=== PATIENT | female | born 2000 | race Caucasian/White ===

== ENCOUNTER 2024-07-16 13:53 | Emergency (ER) | payer MEDICAID, SELFPAY ==
[2024-07-16 14:14] VITALS: BP 119/80; PULSE 98; RESP 16; TEMP 36.6; O2SAT 98; BMI 23.9
--- NOTE | 2024-07-16 14:15 | ED_ITS ---
HPI - Abdominal Pain General Chief Complaint: Abdominal Pain Stated Complaint: Abd pain/diarrhea Time Seen by Provider: 07/16/24 19:58 History of Present Illness ED Provider: Juana JAUREGUI narrative: The patient is a 24-year-old female who does not have any significant past medical history and has no abdominal surgical history. She says that she has had abdominal pains for about 3 days associated with frequent loose stools. She indicates that she has had symptoms for about 3 days. She says that she has had abdominal pain and loose stools. She estimates that she may have had his many as 7 loose stools in a day. She indicates that the pain is primarily in the upper abdomen. She says she has been eating very little over the last few days because when she eats she gets abdominal pain and increased loose stools. By mouth. No definite fever. Possibly some mild nausea but no vomiting. No urinary symptoms. No back pain. The patient denies any recent travel or any other unusual exposures. No camping. No drinking from unusual water sources. It is an antibiotics. Related Data Previous Rx's ?Medication ?Instructions ?Recorded famotidine 40 mg tablet 40 mg PO DAILY #30 tabs 07/16/24 ondansetron 4 mg disintegrating 4 mg PO Q6H PRN nausea and 07/16/24 tablet vomiting #10 tabs Allergies Allergy/AdvReac Type Severity Reaction Status Date / Time No Known Allergies Allergy Verified 07/16/24 14:19 Review of Systems Review of Systems Yes all other systems are reviewed and are negative PMFSH Social History Social History Smoked in Last 30 Days: No Use of substances other than those prescribed or required for medical reasons: No Advance Directives: No Advance Directives Information Provided: No Do you have a plan to hurt others: No Plan Patient : No Physical Exam ED Vital Signs: Vital Signs - 24 hr 07/16/24 14:14 07/16/24 19:46 07/16/24 22:00 Temperature 97.9 F 98.3 F 98.3 F Pulse Rate 98 78 84 Respiratory Rate 16 16 16 Blood Pressure 119/80 122/87 116/81 Pulse Oximetry 98 100 98 Oxygen Delivery Method Room Air Room Air Room Air 07/16/24 22:27 Temperature 98.3 F Pulse Rate 84 Respiratory Rate 16 Blood Pressure 116/81 Pulse Oximetry 98 Oxygen Delivery Method Room Air BMI result Body Mass Index 23.9 Const Other: The patient looks as though she is in no a nearly healthy 24-year-old. She does not appear obviously ill or in distress. HENMT Other: Face is symmetrical. Mucous membranes moist. Eyes General: appearance normal, both eyes and all related structures Neck Neck: Yes no lymphadenopathy Resp Effort & Inspection: normal respiratory effort Auscultation: clear to auscultation bilaterally Cardio Rate: regular rate Rhythm: regular rhythm Heart sounds: S1 normal heart sound present and S2 normal heart sound present GI Other: The abdomen is flat and soft. She has some mild epigastric tenderness. She has so has some mild left lower quadrant tenderness. There is no right lower quadrant tenderness and no significant right upper quadrant tenderness. General: Yes no CVA tenderness Back/Spine/Pelvis Back: no CVA tenderness Skin Other: Skin is dry and unremarkable. Neuro Other: The patient is awake and alert with normal mental status. Cranial nerves are grossly intact. She moves all extremities normally and seems grossly neurologically intact Extrem Other: no peripheral edema Course Course Course Narrative: This is an RME performed by Aimee Vallecillo CNP: Additional HPI, ROS, PE not included below will be deferred to primary provider. Patient is a 24-year-old female who presents emergency department for evaluation of epigastric pain with nausea vomiting and diarrhea, typically 6-7 episodes of vomiting and diarrhea daily, no blood, no black stools. Denies associated symptoms. Denies possibility for . Denies history of similar symptoms in the past Plan: Tenderness upon palpation over the epigastrium, soft, no rigidity or guarding. Plan: Serum labs, urinalysis, hCG Medical Decision Making Medical Decision Making [facility] Narrative: the patient is a 24-year-old female who presents for evaluation of abdominal pain that seems primarily to be epigastric pain and which has also been associated with diarrhea. She does not have any right lower quadrant tenderness on exam. Clinically my suspicion for an acute surgical process is low. Her Laguna score is 3. the patient was treated symptomatically with ketorolac, ondansetron, and for monitoring. She was given a L of IV fluid. She seemed to feel better. Vital signs remain normal. She continues to look quite well. She had no ongoing diarrhea in the emergency department. She will be discharged with a prescription for famotidine and ondansetron. She should return if worse. Lab Data 07/16/24 14:34 07/16/24 14:34 Labs: Lab Results 07/16/24 Range/Units 14:34 WBC 10.6 (4.8-10.8) X10*3/uL RBC 4.07 L (4.20-5.50) X10*6/uL Hgb 13.0 (12.0-16.0) g/dl Hct 37.7 (37.0-47.0) % MCV 92.6 (80.0-98.0) fL MCH 31.9 (27.0-33.0) pg MCHC 34.5 (31.0-35.0) g/dl RDW 11.9 (11.0-16.0) % Plt Count 195 (160-400) X10*3/uL MPV 10.4 (9.4-12.3) fL Immature Gran % (Auto) 0.2 (0.0-0.4) % Neut % (Auto) 74.8 H (45-73) % Lymph % (Auto) 13.0 L (20-40) % [place] % (Auto) 10.8 (2-11) % Eos % (Auto) 0.9 (0-4) % Baso % (Auto) 0.3 (0-2) % Lymph # (Auto) 1.4 (1.2-4.9) X10*3/uL [place] # (Auto) 1.2 (0.1-1.2) X10*3/uL Eos # (Auto) 0.1 (0.0-0.4) X10*3/uL Baso # (Auto) 0.0 (0.0-0.2) X10*3/uL Abs Immat Gran (auto) 0.02 (0.00-0.03) X10*3/uL Absolute Neuts (auto) 7.9 (2.0-8.3) x10*3/uL Absolute Nucleated RBC 0.000 (0.0-0.012) X10*3/uL Nucleated RBC % (auto) 0.0 (0.0-0.2) /100WBC Sodium 139 (135-145) mmol/L Potassium 3.5 (3.3-5.1) mmol/L Chloride 109 H (96-108) mmol/L Carbon Dioxide 23 (22-29) mmol/L Anion Gap 11 L (12-20) BUN 9 (9-16) mg/dL Creatinine 0.82 (0.5-1.4) mg/dL Estim Creat Clear Calc 87.5 Estimated GFR > 60 Random Glucose 79 (60-115) mg/dL Calcium 9.1 (8.4-10.2) mg/dL Magnesium 2.1 (1.6-2.6) mg/dL Total Bilirubin 0.3 (0.0-1.0) mg/dL AST 16 (5-31) U/L ALT 15 (0-31) U/L Alkaline Phosphatase 68 (39-117) U/L C-Reactive Protein 0.96 H (< or = 0.50) mg/dL Total Protein 7.0 (6.5-8.0) g/dL Albumin 4.1 (3.5-5.0) g/dL Lipase 31 (8-78) U/L Urine Color Yellow Urine Appearance Clear Urine pH 5.5 (5.0-9.0) Ur Specific [place] >= 1.030 H (1.005-1.025) Urine Protein Negative (Neg-Trace) mg/dL Urine Glucose (UA) Negative (Negative) mg/dL Urine Ketones Trace (Negative) mg/dL Urine Blood Negative (Negative) Urine Nitrite Negative (Negative) Ur Leukocyte Esterase Negative (Negative) Urine Test NEGATIVE (NEGATIVE) Influenza Type A (PCR) NEGATIVE (Negative) Influenza Type B (PCR) NEGATIVE (Negative) RSV RNA Qual (PCR) NEGATIVE (Negative) SARS-CoV-2 RNA (RT-PCR) NEGATIVE (Negative) Medications Administered Discontinued Medications Generic Name Dose Route Start Last Admin Trade Name Freq PRN Reason Stop Dose Admin Famotidine 20 mg 07/16/24 20:14 07/16/24 20:24 Famotidine/Pf 20 Mg/2 Ml Vial IVPUSH 07/16/24 20:15 20 mg ONCE ONE Administration Sodium Chloride 1,000 mls @ 999 mls/hr 07/16/24 20:15 07/16/24 21:30 Ns IV 07/16/24 21:15 Infused .Q1H1M DARWIN Infusion Ketorolac Tromethamine 10 mg 07/16/24 20:13 07/16/24 20:24 Ketorolac Tromethamine 15 Mg/Ml Vial IVPUSH 07/16/24 20:14 10 mg ONCE ONE Administration Ondansetron HCl 4 mg 07/16/24 20:13 07/16/24 20:24 Ondansetron Hcl 4 Mg/2 Ml Vial IVPUSH 07/16/24 20:14 4 mg ONCE ONE Administration Discharge Plan Discharge Clinical Impression: Diarrhea, Epigastric abdominal pain Patient Disposition: Home, Self-Care Additional Instructions: I think you probably have a viral illness causing your diarrhea that will run its course over the next few days. The pain in your upper stomach may be related to a stomach acid problem. I have sent a prescription for medication called famotidine which helps reduce stomach acid production. Please take this medication daily for the next several days if not longer. I have also sent a prescription for medication called ondansetron that you may use on an as-needed basis for nausea. Drink lot of fluids. Follow up with your regular doctor. Return to the emergency room if you feel significantly worse. Prescriptions: New ondansetron 4 mg tablet,disintegrating 4 mg PO Q6H PRN (Reason: nausea and vomiting) Qty: 10 0RF famotidine 40 mg tablet 40 mg PO DAILY Qty: 30 0RF Stand Alone Forms: Work/School Release Interventions: ED Discharge Assessment Last Done: 07/16/24 22:27 Discharge Date/Time: 07/16/24 22:27 Print Language: Welsh
[2024-07-16 14:41] LABS: MANUAL DIFF FLAG NO
[2024-07-16 14:42] LABS: Basophils Percent Auto 0.3 % (0-2); Eosinophils Absolute Auto 0.1 X10*3/uL (0.0-0.4); Eosinophils Percent Auto 0.9 % (0-4); Hematocrit 37.7 % (37.0-47.0); Imm Gran Abs Auto 0.02 X10*3/uL (0.00-0.03); Imm Gran Pct Auto 0.2 % (0.0-0.4); Lymphocytes Absolute Auto 1.4 X10*3/uL (1.2-4.9); Mean Corpuscular HGB Conc 34.5 g/dl (31.0-35.0); Mean Corpuscular Hemoglobin 31.9 pg (27.0-33.0); Mean Corpuscular Volume 92.6 fL (80.0-98.0); Mean Platelet Volume 10.4 fL (9.4-12.3); Monocytes Absolute Auto 1.2 X10*3/uL (0.1-1.2); Monocytes Percent Auto 10.8 % (2-11); Neutrophils Absolute Auto 7.9 x10*3/uL (2.0-8.3); Neutrophils Percent Auto 74.8 % (45-73); Platelet Count 195 X10*3/uL (160-400); Red Blood Count 4.07 X10*6/uL (4.20-5.50); Red Cell Distribution Width 11.9 % (11.0-16.0); White Blood Count 10.6 X10*3/uL (4.8-10.8)
[2024-07-16 14:53] LABS: UPreg QC Valid YES; Urine Pregnancy NEGATIVE (NEGATIVE)
[2024-07-16 14:57] LABS: Alanine Aminotransferase 15 U/L (0-31); Albumin Level 4.1 g/dL (3.5-5.0); Alkaline Phosphatase 68 U/L (39-117); Anion Gap 11 (12-20); Aspartate Amino Transferase 16 U/L (5-31); Bilirubin Total 0.3 mg/dL (0.0-1.0); Blood Urea Nitrogen 9 mg/dL (9-16); Calcium 9.1 mg/dL (8.4-10.2); Carbon Dioxide 23 mmol/L (22-29); Chloride 109 mmol/L (96-108); Creatinine Clr Calc Pharmacy 87.5; Estimated Glomerular Filt Rate > 60; Glucose Random 79 mg/dL (60-115); Lipase 31 U/L (8-78); Magnesium 2.1 mg/dL (1.6-2.6); Potassium 3.5 mmol/L (3.3-5.1); Sodium 139 mmol/L (135-145)
[2024-07-16 15:11] LABS: Appearance Urine Clear; Color Urine Yellow; Glucose Urine UA Negative (Negative); Leukocyte Esterase Urine Negative (Negative); Nitrite Urine Negative (Negative); PH 5.5 (5.0-9.0); Specific Gravity - Urine >= 1.030 (1.005-1.025); Urine Blood Negative (Negative); Urine Ketones Trace mg/dL (Negative); Urine Protein Negative (Neg-Trace)
[2024-07-16 15:19] LABS: Influenza A PCR NEGATIVE (Negative); Influenza B PCR NEGATIVE (Negative); Resp Syncy Virus RNA Qual PCR NEGATIVE (Negative); SARS COV2 PCR INHOUSE NEGATIVE (Negative)
[2024-07-16 19:46] VITALS: BP 122/87; PULSE 78; RESP 16; TEMP 36.8; O2SAT 100
--- NOTE | 2024-07-16 19:49 | PC.NURSE ---
this rn assumed care of pt, pt a&ox4, respirations even and unlabored. pt reporting onset of loose stool/ diarrhea x3 days, pt reports upper abdominal pain. abdomen tender to touch x4 quadrants but reports she is also on her period causing lower abdominal cramping. vss.
[2024-07-16 20:15] LABS: C Reactive Protein 0.96 mg/dL (< or = 0.50)
[2024-07-16] MEDS: Famotidine/PF 20 MG/2 ML VIAL IVPUSH (20:24)
[2024-07-16] MEDS: Ketorolac Tromethamine 15 MG/ML VIAL 10 MG IVPUSH (20:24)
[2024-07-16] MEDS: ondansetron HCL 4 MG/2 ML VIAL IVPUSH (20:24)
[2024-07-16] MEDS: 0.9 % Sodium Chloride 1,000 ML 999 ML IV (20:24)
--- NOTE | 2024-07-16 20:29 | PC.NURSE ---
20G placed in left ac, pt medicated per mar at this time.
--- NOTE | 2024-07-16 20:29 | PC.NURSE ---
hat placed in pt bathroom, pt instructed to have BM in hat and ring aviles when completed for collection.
[2024-07-16 22:00] VITALS: BP 116/81; PULSE 84; RESP 16; TEMP 36.8; O2SAT 98
[2024-07-16 22:27] VITALS: BP 116/81; PULSE 84; RESP 16; TEMP 36.8; O2SAT 98
== END 2024-07-16 22:27 | disposition home or self-care (01) ==
PROVIDERS: Nurse Practitioner Family; Emergency Provider Emergency Medicine
DX: R19.7 Diarrhea, unspecified (principal); R10.13 Epigastric pain; Z03.818 Encounter for observation for suspected exposure to other biological agents ruled out; Z79.899 Other long term (current) drug therapy
CPT/HCPCS: 0241U; 80053; 81003; 81025; 83690; 83735; 85025; 86140; 96361; 96374; 96375; 99284; 99285; J1885; J2405

== ENCOUNTER 2024-12-17 09:36 | Outpatient (REF) | payer MEDICAID, SELFPAY ==
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
--- OUTSIDE RECORDS SUMMARY | 2024-12-17 10:33 | XMS_ITS | Encounter Summary ---
Author Organization [employer] Address [address] [facility] [address] [place] [address] Care Team Providers Care Feather Separator Name Role Phone Unavailable Primary Care Provider Unavailabl e Reason for Visit * Reason Comments Pre-visit Planning SDOH screening negat magda and tobacco screening negative Encounter Details Date Type Department Care Team ([facility] Contact Info) Description 12/09/2024 Patient Outreach [facility] [address] [place] [address] Pat Jacobs MD [address] [place] [address] Pre-visit Planning (SDOH screening negative and tobacco screening negative) Social History Tobacco Use Types Packs/Day Years Used Date Smoking Tobacco: Never Assessed Housing Stability Answer Date Recorded What is [...] AM EDT documented as of this encounter Progress Notes * Beverly Nelson - 12/09/2024 2:08 PM EST CC Beverly placed successful outbound call to patient for pre-visit planning. Patient name and confirmed. Patient confirms appt date and time, and has transportation. Biggest concern for appointment at this time is wants a referral to a specialist Patient advised to bring to appointment a photo id and insurance card. Appropriate screenings completed in anticipation of appointment. documented in this encounter Plan of Treatment Upcoming Encounters Date Type Department Care Team (Late st Contact Info) Description 03/16/2025 3:00 PM EDT Procedure Visit [facility] [address] [place] [address] Pat Jacobs MD [address] [place] [address] documented as of this encounter Visit Diagnoses Not on filedocumented in this encounter
--- OUTSIDE RECORDS SUMMARY | 2024-12-17 10:33 | XMS_ITS | Encounter Summary ---
Author Organization [employer] Address [address] [facility] [address] [place] [address] Care Team Providers Care Cold Rolling Coordinator Name Role Phone Pat Jacobs MD Primary Care Provider [phone] Encounter Details Date Type Department Care Team (Latest Contact Info) Description 12/17/2024 Travel Social History Tobacco Use Types Packs/Day Years Used Date Smoking Tobacco: Never Smokeless Tobacco: Never Alcohol Use Standard Drinks/Week Comments Yes 0 [...] AM EDT documented as of this encounter Plan of Treatment Upcoming Encounters Date Type Department Care Team (Late st Contact Info) Description 03/16/2025 3:00 PM EDT Procedure Visit [facility] [address] [place] [address] Pat Jacobs MD [address] [place] [address] documented as of this encounter Visit Diagnoses Not on filedocumented in this encounter Care Teams Cold Rolling Coordinator Relationship Specialty Start Date End Date Pat Jacobs MD [address] [place], [place] [id number] PCP - General Family Medicine 12/17/24 documented as of this encounter
[2024-12-17 12:05] LABS: Alanine Aminotransferase 16 U/L (0-31); Albumin Level 4.2 g/dL (3.5-5.0); Alkaline Phosphatase 56 U/L (39-117); Anion Gap 9 (12-20); Aspartate Amino Transferase 18 U/L (5-31); Bilirubin Total 0.4 mg/dL (0.0-1.0); Blood Urea Nitrogen 13 mg/dL (9-16); Carbon Dioxide 25 mmol/L (22-29); Chloride 107 mmol/L (96-108); Cholesterol 110 mg/dL (<200); Estimated Glomerular Filt Rate > 60; Glucose Random 79 mg/dL (60-115); HDL Cholesterol 49 mg/dL (>40); LDL Cholesterol Calculated 55 mg/dL (<100); Potassium 3.9 mmol/L (3.3-5.1); Sodium 137 mmol/L (135-145); Total Protein 7.5 g/dL (6.5-8.0); Triglycerides 34 mg/dL (<150)
[2024-12-17 12:10] LABS: TSH reflex Free T4 0.88 uIU/mL (0.32-4.0)
== END 2024-12-17 09:37 | disposition home or self-care (01) ==
LOC: HO.HHCL 09:36
PROVIDERS: Visit Provider General Practice
DX: Z13.220 Encounter for screening for lipoid disorders (principal); E05.90 Thyrotoxicosis, unspecified without thyrotoxic crisis or storm
CPT/HCPCS: 36415; 80053; 80061; 84443

== ENCOUNTER 2025-03-16 18:12 | Outpatient (REF) | payer OTHER, SELFPAY ==
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
[2025-03-18 17:58] LABS: C. trachomatis RNA TMA NOT DETECTED (NOT DETECTED); N. gonorrhoeae RNA TMA NOT DETECTED (NOT DETECTED)
[2025-03-18 18:54] LABS: Trichomonas (NAAT) NOT DETECTED (NOT DETECTED)
[2025-03-21 13:05] LABS: HPV Genotype 16 Negative (Negative); HPV Genotype 18 Negative (Negative); HPV High Risk Negative (Negative)
== END 2025-03-16 18:13 | disposition home or self-care (01) ==
LOC: HO.HHCLNP 18:12
PROVIDERS: Visit Provider General Practice
DX: Z12.4 Encounter for screening for malignant neoplasm of cervix (principal); Z11.51 Encounter for screening for human papillomavirus (HPV)
CPT/HCPCS: 87491; 87591; 87626; 87661; 88175

== ENCOUNTER 2025-04-12 17:22 | Outpatient (RCR) | payer OTHER, SELFPAY | END 2025-07-19 14:51 | disposition home or self-care (01) | LOC: HO.PT 17:22 | PROVIDERS: PCP General Practice; Visit Provider General Practice | DX: S13.4XXD Sprain of ligaments of cervical spine, subsequent encounter (principal) | CPT/HCPCS: 97110; 97140; 97161; 97530 ==

== ENCOUNTER 2025-08-10 15:41 | Outpatient (REF) | payer OTHER, SELFPAY ==
--- NOTE | ~2025-08-10 | XR_ITS ---
EXAMINATION: XR CHEST CLINICAL INFORMATION: 3 month h/o cough, + hemoptysis past week COMPARISON: None available. TECHNIQUE: PA and lateral views FINDINGS: Mild prominence of the interstitial markings. No consolidation, pleural effusion or pneumothorax. Cardiomediastinal silhouette size is normal. S-shaped curvature of the thoracolumbar spine. XR/XR chest 2V IMPRESSION: Probable acute small airway inflammatory process in the correct clinical settings. Scoliosis, mild, thoracolumbar spine. Electronically signed by: Sanford Kenny MD 08/10/2025 03:57 PM EST RP
--- OUTSIDE RECORDS SUMMARY | 2025-08-10 15:00 | XMS_ITS | Encounter Summary ---
Author Organization [employer] Address [address] [facility] [address] [place] [address] Care Team Providers Care Sewing Room Supervisor Name Role Phone Pat Jacobs MD Primary Care Provider [phone] Encounter Details Date Type Department Care Team (Late st Contact Info) Description 08/10/2025 3:00 PM EST Office Visit [facility] [address] [place] [address] Hemoptysis (Primary Dx); Chronic cough Social History Tobacco Use Types Packs/Day Years Used Date Smoking Tobacco: Never Passive Smoke Exposure: Never Smokeless Tobacco: Never Alcohol Use Standard [...] Q2 Not on file 12/09/2024 Comments No Sex and Gender Information Value Date Recorded Sex Assigned at Female 12/17/2024 9:27 AM EDT Legal Sex Female 1:44 PM EST Gender Identity Female 12/17/2024 9:27 AM EDT Sexual Orientation Don't know 12/17/2024 9: 27 AM EDT documented as of this encounter Last Filed Vital Signs Vital Sign Reading Time Taken Comments Blood Pressure 132/81 08/10/2025 3:09 PM EST Pulse 86 08/10/2025 3:09 PM EST Temperature 35.8 C (96.4 F) 08/10/2025 3:09 PM EST Respiratory Rate 16 08/10/2025 3:09 PM EST Oxygen Saturation 98% 08/10/2025 3:09 PM EST Inhaled Oxygen Concentration - - Weight 63 kg (139 lb) 08/10/2025 3:09 PM EST Height 160 cm (5' 3 ) 08/10/2025 3:09 PM EST Body Mass Index 24.62 08/10/2025 3:09 PM EST documented in this encounter Plan of Treatment Scheduled Orders Name Type Priority Associated Diagnoses Orde r Schedule POCT Rapid Influenza A FIERRO ID NOW Point of Care Testing Routine Chronic cough Ordered: 08/10/2025 POCT Rapid Influenza B FIERRO ID NOW Point of Care Testing Routine Chronic cough Ordered: 08/10/2025 POCT Rapid Covid-19 FIERRO ID NOW Point of Care Testing Routine Chronic cough Ordered: 08/10/2025 D-Dimer, Quantitative Lab Routine Hemoptysis Expected: 08/10/2025 (Approximate), Expires: 08/10/2026 T-SPOT .TB Lab Routine Hemoptysis Expected: 08/10/2025 (Approximate), Expires: 08/10/2026 documented as of this encounter Procedures Procedure Name Priority Date/Time Associated Diagnosis Comments CBC WITH AUTO DIFFERENTIAL Routine 08/10/2025 4:15 PM EST Hemoptysis XR CHEST 2 VIEWS Routine 08/10/2025 4:03 PM EST Hemoptysis Chronic cough documented in this encounter Results * CBC auto differential (08/10/2025 4:15 PM EST) White Blood Count 8.5 4.8 - 10.8 X10*3/uL [facility] Red Blood Count 4.30 4.20 - 5.50 X10*6/uL [facility] Hemoglobin 13.1 12.0 - 16.0 g/dl [facility] Hematocrit 39.7 37.0 - 47.0 % [facility] Mean Corpuscular Volume 92.3 80.0 - 98.0 fL [facility] Mean Corpuscular Hemoglobin 30.5 27.0 - 33.0 pg [facility] Mean Corpuscular HGB Conc 33.0 31.0 - 35.0 g/dl [facility] Red Cell Distribution Width 12.0 11.0 - 16.0 % [facility] Platelet Count 270 160 - 400 X10*3/uL [facility] Mean Platelet Volume 10.0 9.4 - 12.3 fL [facility] Neutrophils Percent Auto 57.3 45 - 73 % [facility] Imm Gran Pct Auto 0.2 0.0 - 0.4 % [facility] Lymphocytes Percent Auto 32.6 20 - 40 % [facility] Monocytes Percent Auto 7.2 2 - 11 % [facility] Eosinophils Percent Auto 2.1 0 - 4 % [facility] Basophils Percent Auto 0.6 0 - 2 % [facility] NRBC Pct Auto 0.0 0.0 - 0.2 /100WBC [facility] Neutrophils Absolute Auto 4.9 2.0 - 8.3 x10*3/uL [facility] Imm Gran Abs Auto 0.02 0.00 - 0.03 X10*3/uL [facility] Lymphocytes Absolute Auto 2.8 1.2 - 4.9 X10*3/uL [facility] Monocytes Absolute Auto 0.6 0.1 - 1.2 X10*3/uL [facility] Eosinophils Absolute Auto 0.2 0.0 - 0.4 X10*3/uL [facility] Basophils Absolute Auto 0.1 0.0 - 0.2 X10*3/uL [facility] NRBC Abs Auto 0.000 0.0 - 0.012 X10*3/uL [facility] Blood Venous blood specimen / Unknown 08/10/2025 4:15 PM EST 08/10/2025 4:15 PM EST us Ed Langston MD LAB BLOOD ORDERABLES Final Resul t Performing Organization Address City/State/[place] Co de Phone Number [facility] [address] [place] [phone] * XR Chest 2 Views (08/10/2025 4:03 PM EST) Anatomical Region Laterality Modality Chest Radiographic Saige ging 08/10/2025 4:03 PM EST Narrative 08/10/2025 3:59 PM EST [address] [address] XRay Report Signed Patient: Lady Aida Reece MR#: [id number] : 2000 Acct:[id number] Age/Sex: 25 / F ADM Date: 08/10/25 Loc: HO.HHCX Attending Dr: dE Langston MD Ordering Physician: ED LANGSTON MD Date of Service: 08/10/25 Procedure(s): XR chest 2V Accession Number(s): [id number] cc: ED LANGSTON MD Reason for Exam: 3 month h/o cough, + hemoptysis past week EXAMINATION: XR CHEST CLINICAL INFORMATION: 3 month h/o cough, + hemoptysis past week COMPARISON: None available. TECHNIQUE: PA and lateral views FINDINGS: Mild prominence of the interstitial markings. No consolidation, pleural effusion or pneumothorax. Cardiomediastinal silhouette size is normal. S-shaped curvature of the thoracolumbar spine. XR/XR chest 2V IMPRESSION: Probable acute small airway inflammatory process in the correct clinical settings. Scoliosis, mild, thoracolumbar spine. Electronically signed by: Sanford Kenny MD 08/10/2025 03:57 PM EST RP Dictated By: Sanford Jiménez MD Signed By: <Electronically signed by Sanford Sims MD in OV> 08/10/25 1557 DD/ 1603 TD/TT: 08/10/25 1554 Boiler Setter: Procedure Note Donotuseinterpreter, Image - 08/10/2025 [place] [address] XRay Report Signed Patient: Lady Shanell FMR#: [id number] : 2000Acct:[id number] Age/Sex: Date: 08/10/25 Loc: HO.HHCX Attending Dr: Ed Langston MD Ordering Physician: ED LANGSTON MD Date of Service: 08/10/25 Procedure(s): XR chest 2V Accession Number(s): [id number] cc: ED LANGSTON MD Reason for Exam: 3 month h/o cough, + hemoptysis past week EXAMINATION: XR CHEST CLINICAL INFORMATION: 3 month h/o cough, + hemoptysis past week COMPARISON: None available. TECHNIQUE: PA and lateral views FINDINGS: Mild prominence of the interstitial markings. No consolidation, pleural effusion or pneumothorax. Cardiomediastinal silhouette size is normal. S-shaped curvature of the thoracolumbar spine. XR/XR chest 2V IMPRESSION: Probable acute small airway inflammatory process in the correct clinical settings. Scoliosis, mild, thoracolumbar spine. Electronically signed by: Sanford Kenny MD 08/10/2025 03:57 PM EST RP Dictated By: Sanford Jiménez MD Signed By: <Electronically signed by Sanford Sims MDin OV> 08/10/25 1557 DD/ 1603 TD/TT: 08/10/25 1554 Boiler Setter: Ed Langston MD IMG XR PROCEDURES Final Result documented in this encounter Visit Diagnoses Diagnosis Hemoptysis- Primary Chronic cough Cough documented in this encounter Additional Health Concerns Assessment Noted Time PHQ-9 Depression Total Score: 0 03/16/20 3:34 PM EDT documented as of this encounter Care Teams Sewing Room Supervisor Relationship Specialty Start Date End Date Pat Jacobs MD [address] [place] [address] PCP - General Family Medicine 12/17/24 documented as of this encounter
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
--- OUTSIDE RECORDS SUMMARY | 2025-08-10 18:29 | XMS_ITS | Encounter Summary ---
Author Organization [employer] Address [address] [employer] [address] [place] [address] Care Team Providers Care Thermo Processor Name Role Phone Pat Jacobs MD Primary Care Provider [phone] Reason for Visit * Reason Onset Date Comments Nurse Triage 08/08/2025 Encounter Details Date Type Department Care Team ([facility] st Contact Info) Description 08/08/2025 Telephone [facility] [address] [place] [address] Pat Jacobs MD [address] [place] [address] Nurse Triage Social History Tobacco Use Types Packs/Day Years [...] AM EDT documented as of this encounter Miscellaneous Notes * Telephone Encounter - Candi Martinez RN - 08/10/2025 10:28 AM EST TC to patient with c programmer. No answer. Detailed message for patient to go to walk-in center to be evaluated. * Telephone Encounter - Candi Martinez RN - 08/08/2025 3:53 PM EST TC to patient to triage with yard supervisor cotton gin. Patient stated she is coughing up a small amount of bright red blood with phlegm in the mornings. She had been diagnosed with pertussis within the past few months, received antibiotics, and stated she is feeling better. Last Friday, she stated she began noticing the small amount of blood when coughing in the morning. Denies pain, fever, shortnes s of breath, difficulty breathing, denies N/V/D. Denies feeling like I did before when I had the pertussis. Routing to provider for review and next steps. * Telephone Encounter - Adolfo Lewis - 08/08/2025 2:44 PM EST Tc from pt stating every time she coughs in the morning blood comes up with flem Contact pt at [phone] (australian) documented in this encounter Plan of Treatment Not on file documented as of this encounter Visit Diagnoses Not on filedocumented in this encounter Additional Health Concerns Assessment Noted Time PHQ-9 Depression Total Score: 0 03/16/20 3:34 PM EDT documented as of this encounter Care Teams Thermo Processor Relationship Specialty Start Date End Date Pat Jacobs MD [address] [place] [phone] PCP - General Family Medicine 12/17/24 documented as of this encounter
--- OUTSIDE RECORDS SUMMARY | 2025-08-10 18:29 | XMS_ITS | Encounter Summary ---
Author Organization [employer] Address [address] [place] [address] Care Team Providers Care Therapist Occupational Name Role Phone Pat Jacobs MD Primary Care Provider [phone] Reason for Visit * Reason Onset Date Comments Referral 12/27/2024 Encounter Details Date Type Department Care Team ([facility] st Contact Info) Description 12/27/2024 Telephone [facility] [address] [place] [address] Pat Jacobs MD [address] [place] [address] Referral Social History Tobacco Use Types Packs/Day Years [...] more drinks on one occasion? 0 12/22/2024 Housing Stability Answer Date Recorded What is [...] encounter Miscellaneous Notes * Telephone Encounter - Whit Carver - 12/27/2024 3:59 PM EDT Tc from pt stating at [facility], appointments for Physical Therapy are scheduled for the end of January andshe would like to change location. documented in this encounter Plan of Treatment Not on file documented as of this encounter Visit Diagnoses Not on filedocumented in this encounter Care Teams Therapist Occupational Relationship Specialty Start Date End Date Pat Jacobs MD [address] [place] [address] PCP - General Family Medicine 12/17/24 documented as of this encounter
== END 2025-08-10 15:42 | disposition home or self-care (01) ==
LOC: HO.HHCX 15:41
PROVIDERS: Visit Provider Emergency Medicine
DX: R04.2 Hemoptysis (principal); R05.3 Chronic cough
CPT/HCPCS: 71046

== ENCOUNTER → 2025-08-10 15:41 | Outpatient (BNV) | payer OTHER, SELFPAY | PROVIDERS: Visit Provider Radiology Diagnostic Radiology | DX: R04.2 Hemoptysis (principal); M41.35 Thoracogenic scoliosis, thoracolumbar region | CPT/HCPCS: 71046 ==

== ENCOUNTER 2025-08-10 16:00 | Outpatient (REF) | payer OTHER, SELFPAY ==
[2025-08-10 16:16] LABS: MANUAL DIFF FLAG NO
[2025-08-10 16:32] LABS: Hematocrit 39.7 % (37.0-47.0); Hemoglobin 13.1 g/dl (12.0-16.0); Imm Gran Abs Auto 0.02 X10*3/uL (0.00-0.03); Imm Gran Pct Auto 0.2 % (0.0-0.4); Lymphocytes Absolute Auto 2.8 X10*3/uL (1.2-4.9); Mean Corpuscular HGB Conc 33.0 g/dl (31.0-35.0); Mean Corpuscular Hemoglobin 30.5 pg (27.0-33.0); Mean Corpuscular Volume 92.3 fL (80.0-98.0); NRBC Abs Auto 0.000 X10*3/uL (0.0-0.012); NRBC Pct Auto 0.0 /100WBC (0.0-0.2); Platelet Count 270 X10*3/uL (160-400); Red Blood Count 4.30 X10*6/uL (4.20-5.50); White Blood Count 8.5 X10*3/uL (4.8-10.8)
[2025-08-10 17:22] LABS: D Dimer High Sensitivity < 150 NG/ML
[2025-08-13 17:48] LABS: TS Negative Control Passed; TS Panel A 0; TS Panel B 0; TS Positive Control Passed; TSpotTB Negative (Negative)
== END 2025-08-10 16:01 | disposition home or self-care (01) ==
LOC: HO.LAB 16:00
PROVIDERS: PCP General Practice; Visit Provider Emergency Medicine
DX: Z11.1 Encounter for screening for respiratory tuberculosis (principal); R04.2 Hemoptysis
CPT/HCPCS: 36415; 85025; 85379; 86481

== ENCOUNTER 2025-09-20 11:04 | Outpatient (AMB) | payer OTHER, SELFPAY ==
[2025-09-20 11:06] VITALS: BP 104/66; PULSE 85; O2SAT 97; BMI 24.8
--- NOTE | 2025-09-20 11:06 | A.OFFVIS_ITS ---
Vital Signs 09/20/25 11:06 Height 5 ft 3 in Weight 140 lb BMI 24.8 BP 104/66 Blood Pressure Location Rt brachial Position Sitting Pulse 85 Pulse Source Pulse Oximeter Pulse Oximetry (%) 97 Oxygen Delivery Method Room Air Intake Visit Reasons: Cough/Hemoptysis Optical Engineering Manager Required: Yes Optical Engineering Manager Language: Gas Or Water Meter Installer Services: Optical Engineering Manager Present Optical Engineering Manager Name: Rita Montenegro QUOC Allergies No Known Allergies Allergy (Verified 09/20/25 11:09) HPI Comments Details: is a pleasant 25 year old female, never smoker, with no significant past medical history. She was referred by PCP for subacute cough with associated hemoptysis. She reports a cough that had persisted for 2-2.5 months, ultimately treated for possible pertussis with azithromycin. TB and ddimer negative. The cough has mostly resolved and is now intermittent and dry. She previously experienced hemoptysis, described as bloody streaks mixed with mucus, primarily in the mornings, but this has not occurred in the last two weeks. She previously had shortness of breath, which has since resolved. She currently denies any dyspnea, chest tightness, chest pain or wheezing. Past medical history is notable for a respiratory infection as a that required a one-month hospitalization. She has no personal or known family history of asthma and does not recall ever using an inhaler or nebulizer. She denies any history of autoimmune conditions, recurrent bronchitis, or sinus infections. A chest x-ray in August suggested probable acute small airway inflammatory process. Socially, she denies any history of smoking or exposure to secondhand smoke. She has a dog at home and suspects an undiagnosed allergy to dust or pollen that causes sneezing. She is not taking any medications and has no known allergies to seafood or kidney issues. Pulmonology History - Chronic cough for 3 months, now improving. - History of hemoptysis, which resolved two weeks ago. - Past shortness of breath, now resolved. - Denies personal or family history of asthma. - History of a respiratory infection as a requiring a one-month hospitalization. - Chest x-ray in August showed probable acute small airway inflammatory process [facility] Social History (Updated 09/20/25 @ 11:09 by Rita Murillo [facility]) Patient Tobacco Use Status: Never used Tobacco Review of Systems Narrative Const Denies chills, Denies excessive sweating, Denies fever(s), Denies headache(s) and Denies night sweats Eyes Denies dry eyes, Denies irritation and Denies itchy eyes ENT Reports Normal hearing present, Denies headache(s), Denies nasal congestion, Denies nasal discharge, Denies post nasal drip and Denies sore throat Card Denies chest pain, Denies chest pain at rest, Denies chest pain with activity, D enies claudication, Denies leg edema, Denies dyspnea, Denies dyspnea on exertion, Denies orthopnea and Denies paroxysmal nocturnal dyspnea Resp Denies change in phlegm color, Denies chest congestion, Reports cough, Denies hemoptysis, Denies excessive phlegm production, Denies pain on inspiration, Denies pain with cough, Denies dyspnea, Denies dyspnea on exertion, Denies st ridor and Denies wheezing Musc Denies myalgias Neuro Reports Normal hearing present and Denies headache(s) Endo Denies excessive sweating Iker/Lymph Denies lymphadenopathy Aller/Immun Denies itchy eyes, Denies seasonal rhinorrhea and Denies wheezing Physical Exam Exam Exam: Vital Signs: Last Vital Signs Pulse 85 09/20/25 11:06 BP 104/66 09/20/25 11:06 Pulse Ox 97 09/20/25 11:06 Oxygen Delivery Method Room Air 09/20/25 11:06 BMI result Body Mass Index 24.8 Const General: cooperative, healthy appearing, comfortable, no acute distress, well developed and alert Orientation/consciousness: patient oriented x3 Limitations: no limitations HEENT Head: Yes normal to inspection, Yes normocephalic and Yes atraumatic Ears: hearing grossly normal bilaterally and external ears normal Eyes General: appearance normal, both eyes and all related structures Eyelids: Yes eyelids normal Sclerae: sclerae normal EOM: EOMs intact bilaterally Neck Neck: Yes normal visual inspection and Yes no lymphadenopathy Lymphatic: no lymphadenopathy noted Chest Chest palpation & inspection: normal inspection of the chest Resp Effort & Inspection: normal respiratory effort, able to speak in complete sentences, no audible wheezes, no cough, no stridor, not tachypneic, no tripod positioning and no use of accessory muscles Auscultation: clear to auscultation bilaterally Cardio Jugular venous distension: no JVD Rate: regular rate Rhythm: regular rhythm Skin Other: warm, dry General skin exam: no rashes or lesions noted Neuro General: patient oriented x3 Cranial nerves: Yes Normal hearing present Cognition (Neuro): normal cognition Gait exam (Neuro): Normal gait present Extrem General: Yes normal to inspection, Yes capillary refill normal, Yes no clubbing, cyanosis or edema and Yes no pedal edema Psych Appearance: grossly normal and well kempt Speech and movement: Normal speech and movement present and Clear speech present Affect: normal affect Attitude: cooperative Thought process: Normal thought process present Thought content: Normal thought content present Insight: Good insight present (Psych) Judgement: Good judgement present (Psych) Results Reviewed Results Reviewed: [address] [address] XRay Report Signed Patient: Lady Aida Reece MR#: [id number] : 2000 Acct:[id number] Age/Sex: 25 / F ADM Date: 08/10/25 Loc: HO.HHCX Attending Dr: Ed Langston MD Ordering Physician: ED LANGSTON MD Date of Service: 08/10/25 Procedure(s): XR chest 2V Accession Number(s): [id number] cc: ED LANGSTON MD~ Reason for Exam: 3 month h/o cough, + hemoptysis past week EXAMINATION: XR CHEST CLINICAL INFORMATION: 3 month h/o cough, + hemoptysis past week COMPARISON: None available. TECHNIQUE: PA and lateral views FINDINGS: Mild prominence of the interstitial markings. No consolidation, pleural effusion or pneumothorax. Cardiomediastinal silhouette size is normal. S-shaped curvature of the thoracolumbar spine. XR/XR chest 2V IMPRESSION: Probable acute small airway inflammatory process in the correct clinical settings. Scoliosis, mild, thoracolumbar spine. Electronically signed by: Sanford Kenny MD 08/10/2025 03:57 PM [facility] Dictated By: Sanford Jiménez MD Signed By: <Electronically signed by Sanford Sims MD in OV> 08/10/25 1557 DD/ 1603 TD/TT: 08/10/25 1554 Meat Counter Clerk: Assessment & Plan Assessment & Plan (1) Chronic cough: Code(s): R05.3 - Chronic cough Category: Medical (2) Hemoptysis: Code(s): R04.2 - Hemoptysis Category: Medical Plan Discussed with the patient that her resolved hemoptysis was likely from inflammation related to a recent infection. To ensure there are no underlying issues, recommended a CTA to assess for underlying structural causes, such as abnormal blood vessels, contributing to hemoptypsis. Explained that her prolonged cough could be a sign of asthma, and recommended a PFT to investigate this possibility. Provided clear return precautions, instructing her to call our office for any change in symptoms, and to go to the emergency room if she coughs up more than a teaspoon of blood. The patient indicated she understood the plan and had no further questions. Also agreed to provide a letter for the patient's work. All questions were answered and patient is in agreement of plan. Will follow up to review results or sooner if needed. Patient Instructions - You will be scheduled for a breathing test and a CT scan of your lungs. - The scheduling department will call you to arrange these appointments. - If your symptoms recur, please call our office. - If you are coughing up more than a teaspoon of blood, you should go to the emergency room. - We will schedule a follow-up visit to discuss your test results, likely around the end of November or beginning of December. Patient was informed and verbally consented to the use of an ambient scribe for clinic note documentation during this visit. Orders: Orders PFT pulmonary function test Today R05.3 - Chronic cough CT angio chest PE protocol Today R04.2 - Hemoptysis Medications: Discontinued famotidine Discontinued Reason: Patient Completed Course 40 mg PO DAILY 30 tabs 0RF ondansetron Discontinued Reason: Patient Completed Course 4 mg PO Q6H PRN 10 tabs 0RF nausea and vomiting Coding Level of Care Code New Pt Level 4 (90006) Diagnoses Chronic cough R05.3 Hemoptysis R04.2
--- OUTSIDE RECORDS SUMMARY | 2025-09-20 14:34 | XMS_ITS | Encounter Summary ---
Author Organization [employer] Address [address] [place] [address] Care Team Providers Care Bin Tripper Operator Name Role Phone Pat Jacobs MD Primary Care Provider [phone] Reason for Visit * Reason Onset Date Comments Referral 12/27/2024 Encounter Details Date Type Department Care Team ([facility] st Contact Info) Description 12/27/2024 Telephone [facility] [address] [place] [address] Pat Jacobs MD [address] [place] [address] Referral Social History Tobacco Use Types Packs/Day [...] PM EDT Tc from pt stating at [facility], appointments for Physical Therapy are scheduled for the end of January andshe would like to change location. documented in this encounter Plan of Treatment Not on file documented as of this encounter Visit Diagnoses Not on filedocumented in this encounter Care Teams Bin Tripper Operator Relationship Specialty Start Date End Date Pat Jacobs MD [address] [place] [address] PCP - General Family Medicine 12/17/24 documented as of this encounter
--- OUTSIDE RECORDS SUMMARY | 2025-09-20 14:34 | XMS_ITS | Clinical Summary ---
Author Organization [employer] Address [address] [place] [address] Care Team Providers Care Warehouse Person Name Role Phone Pat Jacobs MD Primary Care Provider [phone] Allergies No known active allergies Medications prednisoLONE [...] if needed (asthma). 1 each 08/10/20 Active Active Problems Problem Noted Date Diagnosed [...] Encounters Date Type Department Care Team Description 08/14/2025 Results Follow-Up [facility] [address] [place] [phone] Ed Fuller MD CBC auto differential, T-SPOT .TB 08/10/2025 3:00 PM EST Office Visit [facility] [address] [place] [phone] Ed Fuller MD Hemoptysis (Primary Dx); Chronic cough 08/08/2025 Telephone [facility] [address] [place] [address] Pat Jacobs MD Nurse Triage 07/19/2025 2:40 PM EDT Office Visit [facility] [address] [address] Jorge Perkins MD Rash (Primary Dx); Abrasion of right hand, initial encounter 07/19/2025 Travel 07/01/2025 2:45 PM EDT Office Visit [facility] [address] [place] [address] Radha Mancia MD Pertussis 07/01/2025 Travel 06/30/2025 Telephone [facility] [address] [place] [address] Pat Jacobs MD Nurse Triage from Last 3 Months Social History Tobacco [...] 3-dose series) 02/19/2019 COVID-19 Vaccine ( - 2024-2 6 season) 2025 Influenza Vaccine (#1) 2025 SDOH [...] HIGH SENSITIVITY Routine 08/10/2025 4:15 PM EST T-SPOT(R).TB Routine 08/10/2025 4:15 PM EST Hemoptysis CBC WITH AUTO DIFFERENTIAL Routine 08/10/2025 4:15 PM EST Hemoptysis XR CHEST 2 VIEWS Routine 08/10/2025 4:03 PM EST Hemoptysis Chronic cough PAP SMEAR Routine 03/16/2025 3:29 PM EDT from Last 3 Months or Most Recently Relevant to Health Maintenance Results * D Dimer High Sensitivity (08/10/2025 4:15 PM EST) Pathologist [facility] D Dimer High Sensitivity <150 NG/ML [facility] Comment:D-DIMER HS REFERENCE RANGENote: Our assay [...] MD LAB BLOOD ORDERABLES Final Resul t [facility] [address] [place] [phone] * T-SPOT??.TB (08/10/2025 4:15 PM EST) [facility] T Spot TB Negative Negative [facility] Comment:A negative test resu lt does not exclude the possibilityof exposure to or infection with Mycobacteriumtuberculosis (M. tuberculosis). Patients with recentexposure to TB infected individuals exhibiting anegative T-SPOT.TB result should be considered forretesting within 6 weeks or if other relevant clinicalsymptoms indicate. Results from T-SPOT.TB testing mustbe used in conjunction with each individual'sepidemiological history, current medical status,and results of other diagnostic evaluations.The T-SPOT.TB test is qualitative and results arereported as positive, borderline, or negative, giventhat the test controls perform as expected. In linewith the Centers for Disease Control and Prevention's2010 recommendation to report quantitative measurementsalongside the qualitative result, the laboratoryprovides spot counts for informational purposes only.The T-SPOT.TB test should not be interpreted as aquantitative test. TS PANEL A 0 [facility] TS PANEL B 0 [facility] Negative Control Passed [facility] Positive Control Passed [facility] Comment:For additional infor magali, please refer tohttp://education.Youxinpai/faq/RZM688(This link is being provided for informational/educational purposes only.)THIS TEST WAS PERFORMED AT:[employer] [place] [address]KGUYOIVVILMA GAMBLE MD,PHD 08/10/2025 4:15 PM EST 08/10/2025 4:15 PM EST us Ed Fuller MD LAB BLOOD ORDERABLES Final Resul t [facility] [address] [place] [phone] * CBC auto differential (08/10/2025 4:15 PM EST) White Blood Count 8.5 4.8 - 10.8 X10*3/uL [facility] Red Blood Count 4.30 4.20 - 5.50 X10*6/uL [facility] Hemoglobin 13.1 12.0 - 16.0 g/dl [facility] Hematocrit 39.7 37.0 - 47.0 % [facility] Mean Corpuscular Volume 92.3 80.0 - 98.0 fL [facility] Mean Corpuscular Hemoglobin 30.5 27.0 - 33.0 pg [facility] Mean Corpuscular HGB Conc 33.0 31.0 - 35.0 g/dl [facility] Red Cell Distribution Width 12.0 11.0 - 16.0 % [facility] Platelet Count 270 160 - 400 X10*3/uL [facility] Mean Platelet Volume 10.0 9.4 - 12.3 fL [facility] Neutrophils Percent Auto 57.3 45 - 73 % [facility] Imm Gran Pct Auto 0.2 0.0 - 0.4 % [facility] Lymphocytes Percent Auto 32.6 20 - 40 % [facility] Monocytes Percent Auto 7.2 2 - 11 % [facility] Eosinophils Percent Auto 2.1 0 - 4 % [facility] Basophils Percent Auto 0.6 0 - 2 % [facility] NRBC Pct Auto 0.0 0.0 - 0.2 /100WBC [facility] Neutrophils Absolute Auto 4.9 2.0 - 8.3 x10*3/uL [facility] Imm Gran Abs Auto 0.02 0.00 - 0.03 X10*3/uL [facility] Lymphocytes Absolute Auto 2.8 1.2 - 4.9 X10*3/uL [facility] Monocytes Absolute Auto 0.6 0.1 - 1.2 X10*3/uL [facility] Eosinophils Absolute Auto 0.2 0.0 - 0.4 X10*3/uL [facility] Basophils Absolute Auto 0.1 0.0 - 0.2 X10*3/uL [facility] NRBC Abs Auto 0.000 0.0 - 0.012 X10*3/uL [facility] Blood Venous blood specimen / Unknown 08/10/2025 4:15 PM EST 08/10/2025 4:15 PM EST us Ed Fuller MD LAB BLOOD ORDERABLES Final Resul t [facility] [address], [place] [phone] * XR Chest 2 Views (08/10/2025 4:03 PM EST) Anatomical Region Laterality Modality Chest Radiographic Saige ging 08/10/2025 4:03 PM EST Narrative 08/10/2025 3:59 PM EST [facility] [address] [place] [address] XRay Report Signed Patient: Lady Aida Reece MR#: [id number] : 2000 Acct:[id number] Age/Sex: 25 / F ADM Date: 08/10/25 [facility]: Ed Fuller MD Ordering Physician: ED FULLER MD Date of Service: 08/10/25 Procedure(s): XR chest 2V Accession Number(s): [id number] cc: ED FULLER MD Reason for Exam: [...] Sanford Kenny MD 08/10/2025 03:57 PM EST Dictated By: Sanford Jiménez MD Signed By: <Electronically signed by Sanford Sims MD in OV> 08/10/25 1557 DD/ 1603 TD/TT: 08/10/25 1554 Patient Registration Rep: Procedure Note Donotuseinterpreter, Image - 08/10/[address] [address] XRay Report Signed Patient: Lady Shanell FMR#: [id number] : 2000Acct:[id number] Age/Sex: 25 / FADM Date: 08/10/25 Loc: HO.HHCX Attending Dr: Ed Fuller MD Ordering Physician: ED FULLER MD Date of Service: 08/10/25 Procedure(s): XR chest 2V Accession Number(s): [id number] cc: ED FULLER MD Reason for Exam: [...] OV> 08/10/25 1557 DD/ 1603 TD/TT: 08/10/25 1552 Patient Registration Rep: Ed Fuller MD IMG XR PROCEDURES Final Result * Pap Smear (03/16/2025 3:29 PM EDT) 03/16/2025 3:29 PM EDT 03/17/2025 7:33 AM EDT [facility] - 03/21/2025 9:20 AM EDT ----- ------- Name: Lady Aida Reece Age/Sex: 25/F : 2000 Unit#: [id number] Attend Dr: Pat Jacobs Re03/16/25 Status: DEP REF Location: HO.HHCLNP Disch: ----- ------- SPEC : [id number] RECD: 03/17/25 STATUS: NEDA LOPES NUM: [id number] DELMY: 03/16/[address] [facility] [address]: Pat Jacobs ENTERED: 03/17/25 SP TYPE: Pap Smr OT DR: ORDERED: Pap Smear Interpretation Satisfactory for [...] and HPV testing will be performed at [facility] (CLIA #[id number]), [address] [place] [address]. Testing for HPV was performed using the Felisa MARIANELA [employer] Resistant Bedding0 system. The presence of HPV in the [...] detected. All professional services are performed by [facility] ([address] [place] [address]; ; CLIA #[id number]). The PAP Test is a screening procedure with the inherent possibility of both false negative and false positive results. Results should be interpreted in the context of historic and current clinical findings. Reliability of the PAP Test is enhanced by performing the test on a regular repetitive basis. CONTINUED ON NEXT PAGE ----- ------- Name: Lady Aida Reece Age/Sex: 25/F : 2000 Unit#: [id number] Attend Dr: Pat Jacobs Re03/16/25 Status: DEP [facility] Disch: ----- ------- SPEC : [id number] RECD: 03/17/25 STATUS: NEDA COVARRUBIASBobby NUM: [id number] DELMY: 03/16/25-[address] [facility] [address]: Pat Jacobs ENTERED: 03/17/25 SP TYPE: Pap Parveen ELLIS DR: ORDERED: Pap Smear ----- ------- Signed (signature on file) LUCILLE Arriola ([facility]) 03/21/25 0920 ----- ------- END OF REPORT us Pat Jacobs MD LAB CYTOLOGY ORDERABLES Final Result [facility] [address] [place] [address] [phone] from Last 3 Months or Most Recently Relevant to Health Maintenance Insurance [facility] 2 Care Teams Warehouse Person Relationship Specialty Start Date End Date Pat Jacobs MD [address] [place] [phone] PCP - General Family Medicine 12/17/24
== END 2025-09-20 11:30 | disposition home or self-care (01) ==
LOC: HO.HPSW 11:05
PROVIDERS: PCP Emergency Medicine; Referring Provider Emergency Medicine; Visit Provider Nurse Practitioner Family
DX: R05.3 Chronic cough (principal); R04.2 Hemoptysis
CPT/HCPCS: 99204

== ENCOUNTER → 2025-09-20 11:04 | Outpatient (BNVA) | payer OTHER, SELFPAY | PROVIDERS: PCP Emergency Medicine; Referring Provider Emergency Medicine; Visit Provider Nurse Practitioner Family | DX: R04.2 Hemoptysis (principal) | CPT/HCPCS: 99202 ==